=== PATIENT | male | born 1965 | race Caucasian/White ===

== ENCOUNTER 2023-09-03 12:08 | Inpatient (IN) | payer OTHER ==
[2023-09-03 13:28] VITALS: BMI 24.3
[2023-09-03] MEDS ORDERED: guaiFENesin 600 MG TABLET.ER (FP) PO PRN (14:07)
[2023-09-03] MEDS ORDERED: BENZOCAINE/MENTHOL (CHLORASEPTIC ) LOZENGE MM PRN (14:07)
[2023-09-03] MEDS ORDERED: NALOXONE HCL 0.4 MG/ML VIAL IM PRN (14:07)
[2023-09-03] MEDS ORDERED: NALOXONE HCL (KLOXXADO) 8 MG SPRAY NS PRN (14:07)
[2023-09-03] MEDS ORDERED: IBUPROFEN 400 MG TABLET (FP) PO PRN (14:07)
[2023-09-03] MEDS ORDERED: POLYETHYLENE GLYCOL (HEALTHYLAX) 3350 17 GM PACKET PO PRN (14:07)
[2023-09-03] MEDS ORDERED: ACETAMINOPHEN 325 MG TABLET (FP) PO PRN (14:07)
[2023-09-03] MEDS ORDERED: BENZONATATE 200 MG CAPSULE PO PRN (14:07)
[2023-09-03] MEDS ORDERED: LOPERAMIDE HCL 2 MG CAPSULE PO PRN (14:07)
[2023-09-03] MEDS ORDERED: MAGNESIUM HYDROX 2400MG/30ML ORAL SUSPENSION 30 ML CUP PO PRN (14:07)
[2023-09-03] MEDS ORDERED: MAG HYDROX/AL HYDROX/SIMETH 30 ML UNIT-DOSE CUP PO PRN (14:07)
[2023-09-03] MEDS: NICOTINE 7 MG/24 HOURS TOPICAL PATCH TD SCH (15:32)
[2023-09-03] MEDS: TUBERCULIN PPD 5 TU/0.1ML SYRINGE (IN PATIENT USE ONLY) ID ONE (19:23)
[2023-09-03] MEDS: THIAMINE HCL 100 MG TABLET (FP) PO SCH (21:06)
[2023-09-03] MEDS: MELATONIN 5 MG TABLETS PO SCH (21:08)
[2023-09-03] MEDS: traZODone HCL 50 MG TABLET (FP) PO SCH (21:09)
[2023-09-04] MEDS: IBUPROFEN 600 MG TABLET (FP) PO PRN (02:13)
[2023-09-04] MEDS: PRENATAL VITAMINS W/ FOLIC ACID TABLET (FP) PO SCH (10:18)
[2023-09-04] MEDS: risperiDONE 1 MG TABLET PO SCH (10:18)
[2023-09-04 12:07] LABS: POTASSIUM 4.3 mmol/L (3.5-5.1)
[2023-09-04 12:10] LABS: ALBUMIN 3.2 g/dl (3.4-5.0); CALCIUM 8.4 mg/dL (8.5-10.1)
[2023-09-04 12:12] LABS: BLOOD UREA NITROGEN 19.2 mg/dL (7-18)
[2023-09-04 12:16] LABS: BILIRUBIN,TOTAL 0.4 mg/dL (0.2-1); TOT PROT 6.6 g/dl (6.4-8.2)
[2023-09-04 12:25] LABS: HEMOGLOBIN 12.6 GM/dL (11.7-16.9); MCH 28.5 pg (25.7-33.7); MCHC 33.3 g/dl (32.0-35.9); MEAN CELL VOLUME 85.7 fl (80-96); MEAN PLT VOLUME 9.1 fl (7.5-11.1); PLATELET COUNT 184 10^3/uL (134-434); RBC 4.43 M/mm3 (4.00-5.60); WHITE BLOOD COUNT 5.3 K/mm3 (4.0-10.0)
[2023-09-04] MEDS: risperiDONE 1 MG TABLET PO ONE (12:55)
[2023-09-04 13:19] LABS: SYPHILIS W/ RPR CONF NON-REACTIVE (NONREACTIVE)
[2023-09-04] MEDS: GABAPENTIN 100 MG CAPSULE PO SCH (13:29)
[2023-09-04 14:48] LABS: PH,URINE 5.5 (5.0-8.0); URINE APPEARANCE CLEAR; URINE BILIRUBIN NEGATIVE (NEGATIVE); URINE COLOR YELLOW; URINE GLUCOSE (UA) NEGATIVE (NEGATIVE); URINE KETONE NEGATIVE (NEGATIVE); URINE LEUK ESTERASE NEGATIVE (NEGATIVE); URINE NITRITE NEGATIVE (NEGATIVE); URINE PROTEIN NEGATIVE (NEGATIVE); URINE UROBILINOGEN 0.2 mg/dL (0.2-1.0)
[2023-09-04] MEDS: PNEUMOC 20-VAL CONJ-DIP CRM/PF 0.5 ML SYRINGE IM ONE (15:18)
[2023-09-04] MEDS: traZODone HCL 50 MG TABLET (FP) PO SCH (21:10)
[2023-09-05] MEDS ORDERED: risperiDONE 1 MG TABLET PO SCH (06:00)
[2023-09-05] MEDS: PRENATAL VITAMINS W/ FOLIC ACID TABLET (FP) PO SCH (06:26)
[2023-09-05] MEDS: NICOTINE 7 MG/24 HOURS TOPICAL PATCH TD SCH (06:49)
[2023-09-06] MEDS: hydrOXYzine PAMOATE 25 MG CAPSULE (FP) PO PRN (09:45)
[2023-09-08] MEDS: PARoxetine HCL 10 MG TABLET PO SCH (09:49)
[2023-09-10] MEDS: PRENATAL VITAMINS W/ FOLIC ACID TABLET (FP) PO SCH (10:06)
[2023-09-10] MEDS: NICOTINE 7 MG/24 HOURS TOPICAL PATCH TD SCH (10:06)
[2023-09-11] MEDS: OFLOXACIN 0.3% OTIC SOLUTION 5 ML BOTTLE AD SCH (14:37)
[2023-09-20 07:22] VITALS: BP 110/65; PULSE 58; RESP 18; TEMP 98
== END 2023-09-20 09:40 | disposition home or self-care (01) | DRG 772 ==
LOC: YASAS 12:08 → Y3NR 14:26 → Y3E 09-04 11:53
PROVIDERS: ADMIT Allergy & Immunology; ATTEND Psychiatry & Neurology Pain Medicine
PROC: HZ42ZZZ Group Counseling for Substance Abuse Treatment, Cognitive-Behavioral (ICD-10-PCS; principal; 2023-09-03)
DX: F14.20 Cocaine dependence, uncomplicated (principal); F17.210 Nicotine dependence, cigarettes, uncomplicated; F43.10 Post-traumatic stress disorder, unspecified; F41.9 Anxiety disorder, unspecified; G47.00 Insomnia, unspecified; H60.01 Abscess of right external ear; Z86.59 Personal history of other mental and behavioral disorders
CPT/HCPCS: 36415; 71046-TC-FY; 80053; 80305; 80307; 81003; 85027; 86780; 86803; 87811; 90677; 93005; 93010

== ENCOUNTER 2024-05-01 09:07 | Inpatient (IN) | payer OTHER ==
[2024-05-01 09:40] VITALS: BMI 21.8
[2024-05-01] MEDS ORDERED: BENZONATATE 200 MG CAPSULE PO PRN (11:24)
[2024-05-01] MEDS ORDERED: MAGNESIUM HYDROX 2400MG/30ML ORAL SUSPENSION 30 ML CUP PO PRN (11:24)
[2024-05-01] MEDS ORDERED: hydrOXYzine PAMOATE 25 MG CAPSULE (FP) PO PRN (11:24)
[2024-05-01] MEDS ORDERED: POLYETHYLENE GLYCOL (HEALTHYLAX) 3350 17 GM PACKET PO PRN (11:24)
[2024-05-01] MEDS ORDERED: guaiFENesin 600 MG TABLET.ER (FP) PO PRN (11:24)
[2024-05-01] MEDS ORDERED: IBUPROFEN 600 MG TABLET (FP) PO PRN (11:24)
[2024-05-01] MEDS ORDERED: NALOXONE (NARCAN) HCL 4 MG/0.1 ML SPRAY NS PRN (11:24)
[2024-05-01] MEDS ORDERED: BENZOCAINE/MENTHOL (CHLORASEPTIC ) LOZENGE MM PRN (11:24)
[2024-05-01] MEDS ORDERED: MAG HYDROX/AL HYDROX/SIMETH 30 ML UNIT-DOSE CUP PO PRN (11:24)
[2024-05-01] MEDS ORDERED: IBUPROFEN 400 MG TABLET (FP) PO PRN (11:24)
[2024-05-01] MEDS ORDERED: LOPERAMIDE HCL 2 MG CAPSULE PO PRN (11:24)
[2024-05-01] MEDS: PRENATAL VITAMINS W/ FOLIC ACID TABLET (FP) PO SCH (11:33)
[2024-05-01] MEDS ORDERED: PRENATAL VITAMINS W/ FOLIC ACID TABLET (FP) PO ONE (11:37)
[2024-05-01] MEDS ORDERED: amLODIPine BESYLATE 5 MG TABLET (FP) ONE (11:37)
[2024-05-01] MEDS: amLODIPine BESYLATE 5 MG TABLET (FP) PO ONE (11:51)
[2024-05-01] MEDS: MELATONIN 5 MG TABLETS PO SCH (22:23)
[2024-05-01] MEDS: THIAMINE 100 MG TABLET PO SCH (22:24)
[2024-05-01] MEDS: APIXABAN 5 MG TABLET PO SCH (22:24)
[2024-05-02] MEDS: amLODIPine BESYLATE 10 MG TABLET (FP) PO SCH (10:15)
[2024-05-02] MEDS: NICOTINE 14 MG/24 HOURS TOPICAL PATCH TD SCH (10:17)
[2024-05-02 12:29] LABS: HEMATOCRIT 40.6 % (35.4-49); HEMOGLOBIN 12.7 GM/dL (11.7-16.9); MCH 27.2 pg (25.7-33.7); MCHC 31.4 g/dl (32.0-35.9); MEAN CELL VOLUME 86.6 fl (80-96); MEAN PLT VOLUME 9.3 fl (7.5-11.1); PLATELET COUNT 205 10^3/uL (134-434); RBC 4.69 M/mm3 (4.00-5.60); RDW 13.4 % (11.9-15.9); WHITE BLOOD COUNT 5.2 K/mm3 (4.0-10.0)
[2024-05-02 12:31] LABS: POTASSIUM 4.6 mmol/L (3.5-5.1)
[2024-05-02 12:42] LABS: BLOOD UREA NITROGEN 17.2 mg/dL (7-18); CALCIUM 9.3 mg/dL (8.5-10.1)
[2024-05-02 12:43] LABS: CREATININE 0.8 mg/dL (0.55-1.3)
[2024-05-02 12:45] LABS: BILIRUBIN,TOTAL 0.2 mg/dL (0.2-1); TOT PROT 7.1 g/dl (6.4-8.2)
[2024-05-02 12:57] LABS: SYPHILIS W/ RPR CONF NON-REACTIVE (NONREACTIVE)
[2024-05-02 19:25] LABS: URINE APPEARANCE CLEAR; URINE BILIRUBIN NEGATIVE (NEGATIVE); URINE COLOR YELLOW; URINE GLUCOSE (UA) NEGATIVE (NEGATIVE); URINE KETONE NEGATIVE (NEGATIVE); URINE LEUK ESTERASE NEGATIVE (NEGATIVE); URINE NITRITE NEGATIVE (NEGATIVE); URINE PROTEIN NEGATIVE (NEGATIVE); URINE UROBILINOGEN 0.2 mg/dL (0.2-1.0)
[2024-05-05] MEDS: CLINDAMYCIN PHOSPHATE 1% TOPICAL SOLUTION 30 ML BOTTLE TP SCH (21:20)
[2024-05-06] MEDS: amLODIPine BESYLATE 5 MG TABLET (FP) PO SCH (10:54)
[2024-05-06] MEDS: PARoxetine HCL 10 MG TABLET PO SCH (10:54)
[2024-05-06] MEDS: ACETAMINOPHEN 325 MG TABLET (FP) PO PRN (10:56)
[2024-05-08] MEDS: NICOTINE 7 MG/24 HOURS TOPICAL PATCH TD SCH (09:53)
[2024-05-08] MEDS: DOXYCYCLINE HYCLATE 100 MG TABLET PO SCH (17:11)
[2024-05-10] MEDS: traZODone HCL 50 MG TABLET (FP) PO PRN (21:23)
[2024-05-15 07:20] VITALS: RESP 16; TEMP 97.3
[2024-05-15 09:05] VITALS: BP 122/68; PULSE 69
[2024-05-15] MEDS: NALOXONE (NYS OPIOID OVERDOSE PROGRAM) 4 MG/0.1 ML SPRAY NS SCH (09:23)
== END 2024-05-15 09:48 | disposition home or self-care (01) | DRG 772 ==
LOC: YASAS 09:07 → Y3NR 11:07 → Y3W 05-02 17:07
PROVIDERS: ADMIT Psychiatry & Neurology Pain Medicine; ATTEND Psychiatry & Neurology Pain Medicine
PROC: HZ42ZZZ Group Counseling for Substance Abuse Treatment, Cognitive-Behavioral (ICD-10-PCS; principal; 2024-05-01)
DX: F14.20 Cocaine dependence, uncomplicated (principal); F17.210 Nicotine dependence, cigarettes, uncomplicated; F19.982 Other psychoactive substance use, unspecified with psychoactive substance-induced sleep disorder; F19.980 Other psychoactive substance use, unspecified with psychoactive substance-induced anxiety disorder; F31.9 Bipolar disorder, unspecified; F43.10 Post-traumatic stress disorder, unspecified; F41.9 Anxiety disorder, unspecified; I10 Essential (primary) hypertension; L02.422 Furuncle of left axilla; G47.00 Insomnia, unspecified; Z79.01 Long term (current) use of anticoagulants; Z86.718 Personal history of other venous thrombosis and embolism; Z56.0 Unemployment, unspecified; Z59.01 Sheltered homelessness
CPT/HCPCS: 36415; 80053; 80305; 80307; 81003; 85027; 86780; 86803; 87811; 93005; 93010